=== PATIENT | female | born 1995 | race Caucasian/White ===

== ENCOUNTER 2017-06-14 14:53 | Emergency (ER) | payer OTHER ==
[~2017-06-14] VITALS: Ht 154.9 cm; Wt 47.6 kg
[2017-06-14 14:55] VITALS: BP 128/87
--- NOTE | 2017-06-14 15:30 | RAD ---
Ribs right with PA chest History: Right-sided chest pain with coughing for 2 days PA view of the chest and dedicated views of the right ribs were obtained. The heart and pulmonary vessels appear normal. The lungs and pleural margins are clear. The visualized osseous structures appear intact. Impression: No acute findings. No evidence of a bony displaced rib fracture.
--- NOTE | 2017-06-14 15:33 | PHYS DOC ---
General Chief Complaint: RIB PAIN Stated Complaint: COUGH,RIB PAIN Time Seen by MD: 15:32 Source: patient Exam Limitations: no limitations Problems: History of Present Illness Initial Comments Patient is a 22-year-old female who comes to the ED complaining of persistent cough and fatigue. Patient follows at [facility], she has history of right lumpectomy which turned out to be a malignant she was treated with radiation and chemotherapy and has not had a scan in over a year but is considered to be in remission. She was seen at [facility] a few weeks ago with pharyngitis she was prescribed a Z- Maximino and prednisone burst. She says the sore throat symptoms resolved but she has been overwhelmingly fatigued sleeping a lot and has had a persistent nonproductive cough. She doesn't any trauma or pulling a muscle or coughing hard enough to cause her right sided rib pain. She denies weight loss and night sweats or decreased appetite. She has no history of mono in the past Timing/Duration: other Severity: moderate Modifying Factors: improves with other Associated Symptoms: other Allergies: Coded Allergies: Penicillins (Verified Allergy, Unknown, 06/14/17) Past Medical History Medical History: other (breast cancer considered in remission status post chemotherapy and radiation) Surgical History: other (lumpectomy right breast) Social History Smoker: non-smoker Alcohol: none Drugs: none Review of Systems Constitutional: denies chills, denies diaphoresis, denies fever, denies malaise Respiratory: see HPI Cardiovascular: see HPI, denies edema, denies palpitations, denies syncope Gastrointestinal: denies diarrhea, denies nausea, denies vomiting (positive posttussive emesis 1) Musculoskeletal: see HPI, denies back pain, denies joint swelling, denies neck pain Psychiatric/Neurological: denies headache, denies numbness, denies paresthesia Hematologic/Lymphatic: denies blood clots, denies easy bleeding, denies easy bruising Physical Exam General Appearance: WD/WN, no apparent distress Eyes: bilateral eye normal inspection, bilateral eye PERRL, bilateral eye EOMI Ear, Nose, Throat: hearing grossly normal, normal ENT inspection, normal pharynx Neck: non-tender, full range of motion, supple Respiratory: lungs clear, normal breath sounds, other (right sided rib tenderness) Cardiovascular: normal peripheral pulses, regular rate, rhythm Gastrointestinal: non tender, soft Back: no CVA tenderness, no vertebral tenderness Extremities: non-tender, normal inspection Neurologic/Psychiatric: cracking still operator II-XII nml as tested, no motor/sensory deficits, alert, normal mood/affect, oriented x 3 Skin: normal color, warm/dry Orders, Labs, Meds PATIENT: DIOGNEES PEÑALOZA ACCOUNT: [id number] : 1995 LOCATION: ER AGE: 22 SEX: F EXAM STATUS: REG ER ORD. PHYSICIAN: JORGE A LOPEZ DO REASON: Right sided chest pain with coughing x 2 days PROCEDURE: RIBS RIGHT AND PA CHEST Ribs right with PA chest History: Right-sided chest pain with coughing for 2 days PA view of the chest and dedicated views of the right ribs were obtained. The heart and pulmonary vessels appear normal. The lungs and pleural margins are clear. The visualized osseous structures appear intact. Impression: No acute findings. No evidence of a bony displaced rib fracture. DICTATED AND SIGNED BY: ANITA OTERO III, MD DATE: 06/14/17 1526 CC: [facility]; NON,STAFF; JORGE A LOPEZ DO ~ [place] negative No focal source of infection noted. I discussed inflammatory process versus possible metastatic disease. I advised the patient to follow-up at [facility] tomorrow to request MRI evaluation or pulmonology. Discussed signs and symptoms to monitor and was indications for urgent return department. Her questions were answered she is breast agreement and understanding of treatment plan. Departure Time of Disposition: 17:11 Disposition: 01 HOME, SELF-CARE Diagnosis: persistent coug/right rib pain h/o breast CA Condition: STABLE Patient Instructions: Cough, Adult, [id number] Additional Instructions: Use your home cough medication and use your albuterol inhaler every 4 hours and as needed. [id number] Tylenol and ibuprofen as needed. Follow-up at [facility] tomorrow for recheck and possible MRI evaluation to ensure no metastatic disease is present. Return to ED with new or changing symptoms. JORGE A LOPEZ DO Jun 14, 2017 15:32
[2017-06-14] MEDS ORDERED: IPRATRPIUM/ALBUTEROL 0.5/2.5MG 3 ML NEBU. NEB ONE (16:15)
[2017-06-14 16:48] LABS: MONONUCLEOSIS PATIENT NEGATIVE (NEGATIVE)
== END 2017-06-14 17:34 | disposition home or self-care (01) ==
LOC: ER 14:53
DX: R07.81 Pleurodynia (principal); R05 Cough; Z85.3 Personal history of malignant neoplasm of breast; Z88.0 Allergy status to penicillin
CPT/HCPCS: 71101; 86308; 99285; J7620